=== PATIENT | male | born 1990 | race Caucasian/White ===

== ENCOUNTER 2016-08-11 23:24 | Emergency (ER) | payer SELFPAY ==
[~2016-08-11] VITALS: Ht 185.4 cm; Wt 74.5 kg
[~2016-08-11 23:24] MED LIST: ACET1TAB40 PO; IBUP-1542 PO
[2016-08-11 23:30] VITALS: Ht 185.4 cm; Wt 74.5 kg
[2016-08-12] MEDS ORDERED: KETOROLAC 30 MG INJ IM STA (01:57)
[2016-08-12] MEDS ORDERED: ANR PR (02:01)
[2016-08-12] MEDS ORDERED: ULT50 PO (02:01)
[2016-08-12] MEDS ORDERED: DOCU-144 PO (02:01)
--- NOTE | 2016-08-12 02:12 | ERD ---
ER Documentation Chief Complaint Date/Time DATE: 08/12/16 TIME: 02:05 Chief Complaint rectal pain x 3 months, getting worse. hx of hemorrhoids HPI 26-year-old otherwise healthy male presents to the emergency department with complaints of rectal pain due to chronic hemorrhoids. Patient states that he has experienced intermittent external hemorrhoids for the past 3 months but is usually able to control his pain with topical medication and can reduce the hemorrhoid himself. Today he states that for the past 3 days the hemorrhoid has enlarged in size, become increasingly painful, and is unable to be reduced. Patient rates the pain at a constant 10 out of 10 sharp pain localized to the rectum and is alleviated when lying on his side. He states the pain becomes worse when any amount of pressure is applied to the area and he is unable to sit down. Patient has attempted to treat his pain with 2 Aleve today without relief. ROS All systems reviewed and are negative except as per history of present illness. Medications Home Meds Active Scripts Tramadol HCl (Tramadol HCl) 50 Mg Tablet, 50 MG PO Q6 Y for PAIN, #20 TAB Prov:OLYA MICHELLE PA-C 08/12/16 Docusate Sodium* (Colace*) 100 Mg Capsule, 100 MG PO TID, #30 CAP Prov:OLYA MICHELLE PA-C 08/12/16 Hard Fat/Phenylephrine* (Anusol*) 1 Supp Supp, 1 SUPP MA BID for 10 Days, SUPP Prov:OLYA MICHELLE PA-C 08/12/16 Acetaminophen-Codeine* (Acetaminophen-Cod #3*) 300-30 Mg Tab, 1 TAB PO Q4 Y for PAIN AND OR ELEVATED TEMP, #15 TAB Prov:CHO,KALEIGH 12/23/14 Ibuprofen* (Ibuprofen*) 600 Mg Tablet, 600 MG PO Q6 for PAIN LEVEL 1-5, #15 TAB Prov:CHO,KALEIGH 15 Allergies Allergies: Coded Allergies: No Known Allergy (Unverified , 04/08/14) PMhx/Soc History of Surgery: Yes (right knee surgery, left knee surgery) Anesthesia Reaction: No Hx Neurological Disorder: No Hx Respiratory Disorders: No Hx Cardiac Disorders: No Hx Psychiatric Problems: No Hx Miscellaneous Medical Probl: Yes (hemorrhoids ) Hx Alcohol Use: Yes (socially) Hx Substance Use: Yes (marijuana) Hx Tobacco Use: No Smoking Status: Current some day smoker Physical Exam Vitals Vital Signs Date Time Temp Pulse Resp B/P Pulse Ox O2 Delivery O2 Flow Rate FiO2 08/11/16 23:30 97.7 100 20 96/128 79 Physical Exam Const: Well-developed, well-nourished, well-hydrated, nontoxic appearing, in moderate distress. Head: Atraumatic Eyes: Normal Conjunctiva ENT: Normal External Ears, Nose and Mouth. Neck: Full range of motion..~ No meningismus. Resp: Clear to auscultation bilaterally Cardio: Regular rate and rhythm, no murmurs Abd: Soft, non tender, non distended. Normal bowel sounds Skin: No petechiae or rashes Back: No midline or flank tenderness Ext: No cyanosis, or edema Neur: Awake and alert Psych: Normal Mood and Affect Rectal: 1 cm diameter external hemorrhoid identified. No drainage or active bleeding seen. No induration or erythema surrounding the rectum. No evidence of cellulitis or abscess formation. Results 24 hrs Current Medications Medications (Trade) Dose Ordered Sig/Milena Route PRN Reason Start Time Stop Time Status Last Admin Dose Admin Ketorolac Tromethamine (Toradol) 30 mg ONCE STAT IM 08/12/16 01:57 08/12/16 01:58 DC Procedures/MDM 26-year-old with a history of chronic hemorrhoids presents to the emergency department for worsening pain due to enlarged external hemorrhoid. Area was irrigated and cleaned per patient request with normal saline. Patient received injection of Toradol for pain and reports improvement of symptoms. Patient received prescription for pain medication as well as stool softeners and Anusol for symptomatic relief. I discussed with the patient the importance of obtaining a referral from his primary care physician for a general surgeon to better manage his hemorrhoid pain. Based on patient's history of present illness and physical examination the decision was made to discharge. The patient was re-evaluated after ED treatment and stabilizing measures, and symptoms have improved. There is no evidence of life threatening injuries or illnesses at this time. On re-examination, patient resting in no distress, stable vital signs, reports feeling better and safe for discharge with outpatient follow up with PMD in 1-2 days. Patient given return precautions. Departure Diagnosis: Primary Impression: Rectal pain, chronic Additional Impression: Bleeding external hemorrhoids Condition: Stable Referrals: [facility] YOU HAVE RECEIVED A MEDICAL SCREENING EXAM AND THE RESULTS INDICATE THAT YOU DO NOT HAVE A CONDITION THAT REQUIRES URGENT TREATMENT IN THE EMERGENCY DEPARTMENT. FURTHER EVALUATION AND TREATMENT OF YOUR CONDITION CAN WAIT UNTIL YOU ARE SEEN IN YOUR DOCTORS OFFICE WITHIN THE NEXT 1-2 DAYS. IT IS YOUR RESPONSIBILITY TO MAKE AN APPOINTMENT FOR FOLOW-UP CARE. IF YOU HAVE A PRIMARY DOCTOR --you should call your primary doctor and schedule an appointment IF YOU DO NOT HAVE A PRIMARY DOCTOR YOU CAN CALL OUR PHYSICIAN REFERRAL HOTLINE AT IF YOU CAN NOT AFFORD TO SEE A PHYSICIAN YOU CAN CHOSE FROM THE FOLLOWING [facility] [address] [facility]. [facility] [address] [facility] [facility] [address] [facility] [facility] [address] [facility]. [facility] [address]. [facility] [address] Additional Instructions: Call your primary care doctor TOMORROW for an appointment during the next 1-2 days.See the doctor sooner or return here if your condition worsens before your appointment time. OBTAIN REFERRAL FOR GENERAL SURGEON. OLYA MICHELLE PA-C Aug 12, 2016 02:12
[2016-08-12 02:31] VITALS: BP 114/56; RESP 20
== END 2016-08-12 02:31 | disposition home or self-care (01) ==
LOC: FTE 23:24
DX: K62.89 Other specified diseases of anus and rectum (principal); K64.4 Residual hemorrhoidal skin tags; F17.210 Nicotine dependence, cigarettes, uncomplicated
CPT/HCPCS: 96372; 99284; J1885